=== PATIENT | female | born 1990 | race Caucasian/White ===

== ENCOUNTER 2016-11-27 11:18 | Emergency (ER) | payer SELFPAY ==
[~2016-11-27] VITALS: Ht 162.6 cm; Wt 54.4 kg
[2016-11-27 12:02] LABS: BASOPHILS % (AUTO) 0.9 % (0.0-2.0); LYMPHOCYTES % (AUTO) 18.9 % (20.0-45.0); MEAN CORPUSCULAR HEMOGLOBIN 28.9 PG (27.0-31.0); MEAN CORPUSCULAR HGB CONC 32.7 G/DL (32.0-36.0); MEAN CORPUSCULAR VOLUME 88 FL (80-99); MEAN PLATELET VOLUME 9.3 FL (6.5-10.1); MONOCYTES % (AUTO) 3.3 % (1.0-10.0); NEUTROPHILS % (AUTO) 75.9 % (45.0-75.0); PLATELET COUNT 217 K/UL (150-450); RED BLOOD COUNT 4.77 M/UL (4.20-5.40); RED CELL DISTRIBUTION WIDTH 11.6 % (11.6-14.8)
[2016-11-27 12:18] LABS: ALANINE AMINOTRANSFERASE 20 U/L (12-78); ALBUMIN/GLOBULIN RATIO 1.3 (1.0-2.7); ANION GAP 8 (5-15); ASPARTATE AMINO TRANSFERASE 17 U/L (15-37); CALCIUM 9.4 MG/DL (8.5-10.1); CARBON DIOXIDE 29 MMOL/L (21-32); CHLORIDE 106 MMOL/L (98-107); CREATININE 0.8 MG/DL (0.55-1.30); GLOMERULAR FILTRATION RATE > 60 mL/min (>60); LIPASE 106 U/L (73-393); POTASSIUM 3.9 MMOL/L (3.5-5.1); SODIUM 143 MMOL/L (136-145); TOTAL PROTEIN 7.7 G/DL (6.4-8.2)
[2016-11-27 12:24] VITALS: BP 114/78
[2016-11-27 12:27] VITALS: BP 114/78
--- NOTE | 2016-11-27 12:27 | Emergency Room Report ---
History of Present Illness General Chief Complaint: Abdominal Pain Source: EMS Present Illness HPI 26-year-old female with no sig pmhx p/w abdominal pain for one day Patient states that she started her period this morning, came on time, did not wet more than one pad, no clots Patient states pain started this morning, localized to her pubic area, non radiating, burning in nature, intermittent. No relieving or exacerbating factors. Denies nvd. Denies fever, chills. Denies dysuria or hematuria Monogamous with her for many years, no abnormal vaginal discharge, no history of STDs No hx of abdominal surgeries. No hx of endoscopies/colonoscopies. Has not seen an [employer], unknown if she has any cysts in her ovaries Allergies: Coded Allergies: No Known Allergies (Unverified , 11/27/16) Patient History Past Medical History: see triage record Past Surgical History: none Pertinent Family History: none Now: No - 11/26/16 Reviewed Nursing Documentation: PMH: Agreed, PSxH: Agreed Nursing Documentation-PMH Past Medical History: No Stated History Review of Systems All Other Systems: negative except mentioned in HPI Physical Exam Vital Signs Date Time Temp Pulse Resp B/P (MAP) Pulse Ox O2 Delivery O2 Flow Rate FiO2 11/27/16 11:13 98.1 66 16 116/81 98 Room Air Sp02 EP Interpretation: reviewed, normal General Appearance: normal inspection, well appearing, no apparent distress, alert, GCS 15, non-toxic Head: normocephalic, atraumatic Eyes: bilateral eye normal inspection, bilateral eye PERRL, bilateral eye EOMI ENT: normal ENT inspection, normal pharynx, normal voice, moist mucus membranes Neck: normal inspection, full range of motion, supple Respiratory: normal inspection, lungs clear, normal breath sounds, no respiratory distress, no retraction, no wheezing, speaking full sentences, chest symmetrical Cardiovascular #1: normal inspection, regular rate, rhythm, no edema, normal capillary refill Cardiovascular #2: 2+ radial (R), 2+ radial (L) Gastrointestinal: normal inspection, non tender, soft, non-distended, no guarding, other - Nontender all parts of abdomen Musculoskeletal: normal inspection, back normal, normal range of motion, non- tender Neurologic: normal inspection, alert, oriented x3, responsive, motor strength/ tone normal, sensory intact, normal gait, speech normal Psychiatric: normal inspection, judgement/insight normal, memory normal Skin: normal inspection, normal color, no rash, warm/dry, well hydrated, normal turgor Medical Decision Making Diagnostic Impression: Primary Impression: Suprapubic pain ER Course 26-year-old female with suprapubic abdominal pain Differential Diagnosis: Gastritis, gastroenteritis, cholecystitis, appendicitis, UTI/pyelo, ovarian pathology such as cysts At this time abdomen is soft nontender, not likely to have acute intra- abdominal surgical pathology, will hold CT for now. At this time ovarian torsion is very unlikely as patient's pain has completely resolved upon coming to the emergency room Plan: Basic labs, ua Patient was offered pain medication but states that she is no longer in any pain ER course: Patient has remained stable during ED stay. Repeat abdominal exam continues to be nontender. Disposition: Patient is requesting to leave AGAINST MEDICAL ADVICE as she states that she has no more pain and she has a doctor's appointment later Strict return precautions discussed with patient such as fever, chills, worsening/severe abdominal pain, nausea, vomiting, black or bloody stools, which may indicate severe illness. Patient verbalizes understanding and agrees with plan. Patient is clinically sober, is free from from distracting injury, and has intact judgement and capacity to decide to leave against medical advice. Patient came in for abdominal pain. Patient verbalized understanding of my concern and my need to do wait for her lab results, but patient states "I have no more pain and I have a doctor's appointment later ". I explained to patient the risks of leaving AMA and patient informed that if they leave, they could get worse, ould become become critically ill, possibly become disabled or . Patient verbalized back to me understanding of these risks but still wants to leave. Please note that this Emergency Department Report was dictated using [employer]is[employer]professor/nurse anesthetist technology software, occasionally this can lead to erroneous entry secondary to interpretation by the dictation equipment Laboratory Tests Test 11/27/16 11:30 White Blood Count 10.0 K/UL (4.8-10.8) Red Blood Count 4.77 M/UL (4.20-5.40) Hemoglobin 13.8 G/DL (12.0-16.0) Hematocrit 42.2 % (37.0-47.0) Mean Corpuscular Volume 88 FL (80-99) Mean Corpuscular Hemoglobin 28.9 PG (27.0-31.0) Mean Corpuscular Hemoglobin Concent 32.7 G/DL (32.0-36.0) Red Cell Distribution Width 11.6 % (11.6-14.8) Platelet Count 217 K/UL (150-450) Mean Platelet Volume 9.3 FL (6.5-10.1) Neutrophils (%) (Auto) 75.9 % (45.0-75.0) H Lymphocytes (%) (Auto) 18.9 % (20.0-45.0) L Monocytes (%) (Auto) 3.3 % (1.0-10.0) Eosinophils (%) (Auto) 1.0 % (0.0-3.0) Basophils (%) (Auto) 0.9 % (0.0-2.0) Sodium Level 143 MMOL/L (136-145) Potassium Level 3.9 MMOL/L (3.5-5.1) Chloride Level 106 MMOL/L (98-107) Carbon Dioxide Level 29 MMOL/L (21-32) Anion Gap 8 (5-15) Blood Urea Nitrogen 14 mg/dL (7-18) Creatinine 0.8 MG/DL (0.55-1.30) Estimate Glomerular Filtration Rate > 60 mL/min (>60) Glucose Level 97 MG/DL (74-106) Calcium Level 9.4 MG/DL (8.5-10.1) Total Bilirubin 0.6 MG/DL (0.2-1.0) Aspartate Amino Transferase (AST) 17 U/L (15-37) Alanine Aminotransferase (ALT) 20 U/L (12-78) Alkaline Phosphatase 56 U/L (46-116) Total Protein 7.7 G/DL (6.4-8.2) Albumin 4.3 G/DL (3.4-5.0) Globulin 3.4 g/dL Albumin/Globulin Ratio 1.3 (1.0-2.7) Lipase 106 U/L (73-393) Last Vital Signs Date Time Temp Pulse Resp B/P (MAP) Pulse Ox O2 Delivery O2 Flow Rate FiO2 11/27/16 11:13 98.1 66 16 116/81 98 Room Air Disposition: AGAINST MEDICAL ADVICE Condition: Improved Patient Instructions: Abdominal Pain, Adult Mark Richards M.D. Nov 27, 2016 12:27
== END 2016-11-27 13:17 | disposition left against medical advice (07) ==
LOC: EDBD 11:18 → EMR 12:10
DX: R10.9 Unspecified abdominal pain (principal)
CPT/HCPCS: 36415; 80053; 83690; 85025; 99284

== ENCOUNTER 2019-04-27 00:33 | Emergency (ER) | payer MEDICAID, OTHER ==
[~2019-04-27] VITALS: Ht 182.9 cm; Wt 61.2 kg
--- NOTE | 2019-04-27 00:40 | NUR ---
ED Nurse Note: walk-in patient, accompanied by friend with complaints of edible marijuana ingestion. Patient recalls taking 2 1/2 pieices of 5mg marijuana candy = 25mg. Patient is slightly anxious and hyperalert. Will continue to monitor. Patient has friend at bedside.
[2019-04-27 00:48] VITALS: BP 153/54
--- NOTE | 2019-04-27 01:17 | NUR ---
ED Nurse Note: Patient tolerated IV start well at right AC 20G. Patient has IV 1L N/S running wide open. Will continue to monitor.
--- NOTE | 2019-04-27 01:43 | NUR ---
ED Nurse Note: IV fluids DC, patient states she feels better, Friend still at bedside, will continue to monitor.
--- NOTE | 2019-04-27 02:01 | NUR ---
ER DISCHARGE NOTE: Patient is cleared to be discharged per ERMD, pt is aox4, on room air, with stable vital signs. pt was given dc and prescription instructions, pt was able to verbalize understanding, pt id band and iv site removed without complications. pt is able to ambulate with steady gait. pt took all belongings.
[2019-04-27 02:15] VITALS: BP 153/54
--- NOTE | 2019-04-27 04:01 | Emergency Room Report ---
History of Present Illness General Chief Complaint: Substance Abuse Source: Patient Present Illness HPI 29-year-old female presents the ED for evaluation. Patient and friend states that patient ingested 2 marijuana gummy's as well as drink some wine. Occurred about 2 hours ago. Patient states she feels lightheaded and feels palpitations. Feels anxious. Friend states that the Gummies were 10 mg THC each. Denies SI or HI. Denies hearing voices. Denies any other drug use. No other aggravating relieving factors. Denies any other associated symptoms COVID-19 risk:Travel to affect: No Has patient experienced penaloza: No Allergies: Coded Allergies: No Known Allergies (Unverified , 11/27/16) Patient History Past Medical History: none Past Surgical History: none Pertinent Family History: none Social History: Denies: smoking, alcohol use, drug use Last Menstrual Period: unk Now: No Immunizations: UTD Reviewed Nursing Documentation: PMH: Agreed; PSxH: Agreed Nursing Documentation-PMH Past Medical History: No Stated History Review of Systems All Other Systems: negative except mentioned in HPI Physical Exam Vital Signs Date Time Temp Pulse Resp B/P (MAP) Pulse Ox O2 Delivery O2 Flow Rate FiO2 04/27/19 00:37 98.6 89 15 153/54 (87) 97 Room Air Sp02 EP Interpretation: reviewed, normal General Appearance: no apparent distress, alert, GCS 15, non-toxic Head: normocephalic, atraumatic Eyes: bilateral eye normal inspection, bilateral eye PERRL ENT: hearing grossly normal, normal pharynx, no angioedema, normal voice Neck: full range of motion, supple/symm/no masses Respiratory: chest non-tender, lungs clear, normal breath sounds, speaking full sentences Cardiovascular #1: regular rate, rhythm, no edema Cardiovascular #2: 2+ carotid (R), 2+ carotid (L), 2+ radial (R), 2+ radial (L) , 2+ dorsalis pedis (R), 2+ dorsalis pedis (L) Gastrointestinal: normal bowel sounds, non tender, soft, non-distended, no guarding, no rebound Rectal: deferred Genitourinary: normal inspection, no CVA tenderness Musculoskeletal: back normal, normal range of motion, gait/station normal, non- tender Neurologic: alert, motor strength/tone normal, oriented x3, sensory intact, responsive, speech normal Psychiatric: judgement/insight normal, memory normal, no suicidal/homicidal ideation, anxious Reflexes: 3+ bicep (R), 3+ bicep (L), 3+ tricep (R), 3+ tricep (L), 3+ knee (R) , 3+ knee (L) Lymphatic: no adenopathy Medical Decision Making Diagnostic Impression: Primary Impression: Marijuana intoxication Qualified Codes: F12.929 - Cannabis use, unspecified with intoxication, unspecified ER Course Hospital Course 29 yo F presents with anxiety, palpitations after ingesting marijuana gummies, wine Differential diagnoses include: Psychosis, EtOH, drug abuse Clinical course patient placed on stretcher. On potline monitor. After initial history and physical ordered IVFs I discussed with patient. The starter dose of THC is closer to 5 mg and patient ingested much more than that. Patient also drank wine. After IV hydration and observation patient feels better. Asking to be discharged. Safe for discharge for close outpatient follow-up i. I feel this is a highly complex case requiring extensive working including EKG/Rhythm strip, Xray/CT/US, Blood/urine lab work, repeat exams while in ED, and administration of strong opiates/narcotics for pain control, admission to hospital or close patient follow up. Diagnosis - marijuana intoxication Stable and discharged to home. Followup with PMD. Return to ED if symptoms recur or worsen Last Vital Signs Date Time Temp Pulse Resp B/P (MAP) Pulse Ox O2 Delivery O2 Flow Rate FiO2 04/27/19 02:15 98.6 15 153/54 97 Room Air 04/27/19 00:48 89 Status: improved Disposition: HOME, SELF-CARE Condition: Stable Patient Instructions: Cannabis Use Disorder Tad Oh MD Apr 27, 2019 04:01
== END 2019-04-27 02:01 | disposition home or self-care (01) ==
LOC: EMR 00:57
DX: F12.929 Cannabis use, unspecified with intoxication, unspecified (principal); F41.9 Anxiety disorder, unspecified
CPT/HCPCS: 96360; J7030; Z7502; 99284